=== PATIENT | female | born 1955 | race Caucasian/White ===

== ENCOUNTER 2017-11-06 06:56 | Day surgery (SDC) | payer OTHER ==
--- OUTSIDE RECORDS SUMMARY | 2017-11-06 06:59 | XMS REPORT | Clinical Summary ---
:1955 Author Organization [facility] Address [address] [place] [id number] Care Team Providers Name Role Phone Asked, No Pcp Primary Care Provider Unavailable Allergies Not on File Current Medications Not on file Active Problems Not on file Encounters Date Type Specialty Care Team Description 01/11/2017 Office Visit Neuropsychology Shane Ann, PhD Memory loss ( Primary Dx); Post concussion syndrome after 11/05/2016 Social History Tobacco Use Types Packs/Day Years Used Date Never Assessed Sex Assigned at Date Recorded Not on file Last Filed Vital Signs Not on file Plan of Treatment Health Maintenance Due Date Last Done Comments PAP SMEAR 1977 COLONOSCOPY 2006 MAMMOGRAM 2006 ZOSTER VACCINE 2016 INFLUENZA VACCINE 02/20/2018 Results Not on fileafter 11/05/2016 Insurance Payer Benefit Plan / Group Subscriber ID Type Phone Address WORKERS COMP MISC WORKER'S COMP xxxxxxxxx Workers Comp Guarantor Name Account Type Relation to Date of Phone Billing Address Patient [id number] Workers Comp Self 1955 Work: [id number] [facility] [employer] [phone] [place] [address] Home: [id number] [address] Personal/Famil Self 1955 Work: [address] [employer] [address] [phone] [place] [address] Home: [phone]
[2017-11-06] MEDS ORDERED: Ringers Lactate 1,000 ML IV ONE (07:02)
[2017-11-06] MEDS: PHENYLEPHRINE 10% OPTH 5ML ONE ×3 (07:15→07:45)
[2017-11-06] MEDS: MOXIFLOXACIN HCL 0.5% 3ML OPTH OPTH ONE ×3 (07:15→07:45)
[2017-11-06] MEDS: CYCLOPENTOLATE 2% OPTH 2 ML ONE ×3 (07:15→07:45)
[2017-11-06] MEDS: TROPICAMIDE 1% OPTH 3 ML BOT ONE ×3 (07:15→07:45)
[2017-11-06] MEDS ORDERED: TOBRADEX 0.3-0.1% OPTH OINTMENT ONE (07:19)
[2017-11-06] MEDS ORDERED: BSS OPTHALMIC SOL 15 ML BOT OPTH ONE (07:19)
[2017-11-06] MEDS ORDERED: DUOVISC 1 KIT OPTH ONE (07:20)
[2017-11-06] MEDS: KETOROLAC OPTHALMIC 5 ML BOT ONE ×3 (07:20→07:50)
[2017-11-06] MEDS ORDERED: POVIDONE-IODINE 5% EYE DROPS ONE (07:20)
[2017-11-06] MEDS ORDERED: BALANCED SALT IRRIG PLAIN 500 ML BTL IRR ONE (07:20)
[2017-11-06] MEDS ORDERED: EPINEPHRINE/PF 1 MG/ML AMP ONE (08:15)
[2017-11-06] MEDS ORDERED: PROPOFOL 200 MG/20 ML VIAL IV ONE (08:21)
[2017-11-06] MEDS ORDERED: LIDOCAINE 2% MPF 5 ML VIAL ONE (08:22)
[2017-11-06] MEDS ORDERED: MIDAZOLAM HCL 2 MG/2 ML INJ ONE (08:22)
[2017-11-06] MEDS ORDERED: FENTANYL CITR 100 MCG/2 ML ONE (08:23)
[2017-11-06] MEDS ORDERED: ONDANSETRON 4 MG/2 ML VIAL ONE (08:23)
[2017-11-06] MEDS ORDERED: DEXAMETHASONE 10 MG/ML VIAL ONE (08:55)
--- NOTE | 2017-11-06 20:15 | OP ---
Date of Procedure: 11/06/2017 Surgeon: Gerardo Tao MD Preoperative Diagnosis: Visually significant cataract. Postoperative Diagnosis: Visually significant cataract. Procedure Performed: Cataract extraction with placement of intraocular lens, left eye. Description Of Procedure: After being properly identified in the preoperative holding area, the patient was taken back to the operating room where a time-out was performed. The patient was then prepped and draped in the normal sterile fashion. Grasping the globe with a pair of 0.12 forceps, a paracentesis incision was made temporally using an axis marker. The 121 degree axis as well as the 90 degree incision location was marked in order for future toric alignment. Viscoat was then added into the anterior chamber and the entire vial of Viscoat was required secondary to the large eye of the patient. A continuous curvilinear capsulorrhexis was created using a cystotome and completed with Utrata forceps. Hydrodissection and hydrodelineation of the lens were carried out using a 25-gauge cannula resulting in free rotation of the lens material. The lens was then removed in a standard divide and conquer technique. Once all 4 quadrants had been removed, the phaco handpiece was exchanged for an irrigation aspiration hand piece. At this point, the CDE measured 6.92. Once all remaining cortical material had been removed, the capsular bag was insufflated with Provisc and an DEEPALI lens, model [id number], power of 8.5 diopter, serial #[id number] was injected into the capsular bag and dialed into position. The irrigation aspiration handpiece was then used to remove all remaining viscoelastic material and once the preferred alignment at 121 degrees was confirmed, the wound was hydrated and tested and was found to be watertight. The procedure concluded. The patient was pressure patched over TobraDex ointment and woken from anesthesia, having tolerated procedure well. There were no complications. Estimated blood loss less than 1 mL. There were no specimens sent. No drains placed. She was taken to the postoperative holding area in stable condition as I said, and she is to follow up with myself, Dr. Gerardo Tao, at the [facility] tomorrow morning. DICTATED BUT NOT REVIEWED JPG/MODL Voice ID: [id number] Report ID: [id number] MTDD
== END 2017-11-06 10:56 | disposition home or self-care (01) ==
LOC: OR 06:56
PROVIDERS: ATTEND Ophthalmology
PROC: 08RK3JZ Replacement of Left Lens with Synthetic Substitute, Percutaneous Approach (ICD-10-PCS; principal; 2017-11-06 08:00)
DX: H26.9 Unspecified cataract (principal); Z88.0 Allergy status to penicillin; Z88.3 Allergy status to other anti-infective agents; Z88.6 Allergy status to analgesic agent
CPT/HCPCS: J0171; J1100; J2250; J2405; J3010; V2787